=== PATIENT | female | born 1995 | race Caucasian/White ===

== ENCOUNTER 2018-12-14 14:55 | Emergency (ER) | payer OTHER ==
[2018-12-14 15:22] LABS: Urine Blood 3+ (NEG); Urine Glucose NEGATIVE (NEG); Urine Protein 3+ (NEG)
[2018-12-14 15:46] LABS: Urine Bacteria 20-50 /HPF (<20); Urine Culture Reflex Order REFLEXED; Urine RBC >50 /HPF (NONE SEEN)
--- NOTE | 2018-12-14 15:46 | ER ---
Nurse's Notes [facility] Name: Merlyn Guallpa Age: 23 yrs Sex: Female : 1995 Arrival Date: 12/14/2018 Time: 14:58 Bed 30 Private MD: Diagnosis: Urinary tract infection, site not specified Presentation: 12/14 15:15 Presenting complaint: Patient states: "I WAS FINE EARLIER TODAY. I WAS AT WORK AND rv SUDDENLY I JUST FELT GOING TO THE BATHROOM EVERY FIVE MINUTES, AND I ALSO NOTICED BLOOD IN MY URINE.". Transition of care: patient was not received from another setting of care. Onset of symptoms was December 14, 2018 at 12:00. Risk Assessment: Do you want to hurt yourself or someone else? Patient reports no desire to harm self or others. Initial Sepsis Screen: Does the patient meet any 2 criteria? No. Patient's initial sepsis screen is negative. Does the patient have a suspected source of infection? No. Patient's initial sepsis screen is negative. Care prior to arrival: None. 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 - Social history:: Smoking status: Patient/guardian denies using tobacco, never smoked. - Ebola Screening: : Patient negative for fever greater than or equal to 101.5 degrees Fahrenheit, and additional compatible Ebola Virus Disease symptoms Patient denies exposure to infectious person Patient denies travel to an Ebola-affected area in the 21 days before illness onset. - Family history:: not pertinent. - Hospitalizations: : No recent hospitalization is reported. Screenin:37 Abuse screen: Denies threats or abuse. Denies injuries from another. Nutritional rv screening: No deficits noted. Tuberculosis screening: No symptoms or risk factors identified. Fall Risk None identified. Assessment: 15:37 General: Appears in no apparent distress. comfortable, Behavior is calm, cooperative. rv Pain: Denies pain. Neuro: Level of Consciousness is awake, alert, obeys commands, Oriented to person, place, time, situation. Cardiovascular: Capillary refill < 3 seconds. Respiratory: Airway is patent. GI: No signs and/or symptoms were reported involving the gastrointestinal system. : No signs and/or symptoms were reported regarding the genitourinary system. EENT: No signs and/or symptoms were reported regarding the EENT system. Derm: Skin is intact. Musculoskeletal: No signs and/or symptoms reported regarding the musculoskeletal system. Vital Signs: 15:21 BP 116 / 73; Pulse 88; Resp 18; Temp 98.7(O); Pulse Ox 97% on R/A; Weight 113.4 kg (R); rv ED Course: 14:58 Patient arrived in ED. as 15:17 Triage completed. rv 15:22 Alvin Danielle MD is Attending Physician. rn 15:23 Urine Microscopic Only Sent. rv 15:38 Patient has correct armband on for positive identification. Bed in low position. Call rv light in reach. Side rails up X 1. Adult w/ patient. Pulse ox on. NIBP on. 15:38 Patient placed in an exam room, on a stretcher, on pulse oximetry, Patient notified of rv wait time. 15:52 No provider procedures requiring assistance completed. Patient did not have IV access rv during this emergency room visit. Administered Medications: No medications were administered Outcome: 15:45 Discharge ordered by . rn 15:52 Discharged to home ambulatory. rv 15:52 Condition: good 15:52 Discharge instructions given to patient, family, Instructed on discharge instructions, follow up and referral plans. medication usage, Demonstrated understanding of instructions, follow-up care, medications, Prescriptions given X 1. 15:53 Patient left the ED. rv Signatures: Ally Mariee Roman, MD MD rn Vicente, Ronaldo, RN RN rv
--- NOTE | 2018-12-14 15:46 | EDPHYS ---
Physician Documentation [facility] Name: Merlyn Guallpa Age: 23 yrs Sex: Female : 1995 Arrival Date: 12/14/2018 Time: 14:58 Bed 30 Private MD: ED Physician Alvin Danielle HPI: 12/14 15:38 This 23 yrs old Female presents to ER via Ambulatory with complaints of rn Urinary Problem. 15:38 The patient presents with urinary symptoms, dysuria, frequency. Onset: The rn symptoms/episode began/occurred today. Modifying factors: The symptoms are alleviated by nothing, the symptoms are aggravated by nothing. Severity of symptoms: At their worst the symptoms were mild, in the emergency department the symptoms are unchanged. The patient has not experienced similar symptoms in the past. The patient has not recently seen a physician. Reports today began with increased urinary frequency and some blood in urine. No fever/vomiting/abd pain. . 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 - Social history:: Smoking status: Patient/guardian denies using tobacco, never smoked. - Ebola Screening: : Patient negative for fever greater than or equal to 101.5 degrees Fahrenheit, and additional compatible Ebola Virus Disease symptoms Patient denies exposure to infectious person Patient denies travel to an Ebola-affected area in the 21 days before illness onset. - Family history:: not pertinent. - Hospitalizations: : No recent hospitalization is reported. ROS: 15:38 Constitutional: Negative for fever, chills, and weight loss, Eyes: Negative for injury, rn pain, redness, and discharge, Cardiovascular: Negative for chest pain, palpitations, and edema, Respiratory: Negative for shortness of breath, cough, wheezing, and pleuritic chest pain, Abdomen/GI: Negative for abdominal pain, nausea, vomiting, diarrhea, and constipation, Back: Negative for injury and pain, : + hematuria and dysuria MS/Extremity: Negative for injury and deformity, Skin: Negative for injury, rash, and discoloration, Neuro: Negative for headache, weakness, numbness, tingling, and seizure. Exam: 15:38 Constitutional: This is a well developed, well nourished patient who is awake, alert, rn and in no acute distress. Abdomen/GI: Soft, non-tender Vital Signs: 15:21 BP 116 / 73; Pulse 88; Resp 18; Temp 98.7(O); Pulse Ox 97% on R/A; Weight 113.4 kg (R); rv MDM: 15:22 Patient medically screened. rn 15:38 Differential diagnosis: urinary tract infection. Data reviewed: vital signs, nurses rn notes, lab test result(s), urinalysis, and as a result, I will discharge patient. Counseling: I had a detailed discussion with the patient and/or guardian regarding: the historical points, exam findings, and any diagnostic results supporting the discharge/admit diagnosis, lab results, the need for outpatient follow up, to return to the emergency department if symptoms worsen or persist or if there are any questions or concerns that arise at home. Special discussion: I discussed with the patient/guardian in detail that at this point there is no indication for admission to the hospital. It is understood, however, that if the symptoms persist or worsen the patient needs to return immediately for re-evaluation. 12/14 15:14 Order name: Urine Dipstick--Ancillary (enter results) 12/14 15:14 Order name: Urine --Ancillary (enter results) 12/14 15:14 Order name: Urine Microscopic Only 12/14 15:46 Order name: Urine Culture EDMS Administered Medications: No medications were administered Disposition: 12/14/18 15:45 Discharged to Home. Impression: Urinary tract infection, site not specified. - Condition is Stable. - Discharge Instructions: Urinary Tract Infection, Adult. - Prescriptions for Macrobid 100 mg Oral Capsule - take 1 capsule by ORAL route every 12 hours for 10 days; 20 capsule. - Medication Reconciliation Form, Thank You Letter, Antibiotic Education, Prescription Opioid Use, Work release form form. - Follow up: Private Physician; When: As needed; Reason: Recheck today's complaints, Re-evaluation by your physician. - Problem is new. - Symptoms have improved. Signatures: Dispatcher [employer] EDMS Danielle, Alvin, MD MD rn Donavan, Ruben, RN RN rv Corrections: (The following items were deleted from the chart) 15:53 15:45 12/14/2018 15:45 Discharged to Home. Impression: Urinary tract infection, site rv not specified. Condition is Stable. Forms are Medication Reconciliation Form, Thank You Letter, Antibiotic Education, Prescription Opioid Use. Follow up: Private Physician; When: As needed; Reason: Recheck today's complaints, Re-evaluation by your physician. Problem is new. Symptoms have improved. rn
== END 2018-12-14 15:53 | disposition home or self-care (01) ==
LOC: ER 14:55
DX: N39.0 Urinary tract infection, site not specified (principal)
CPT/HCPCS: 81003; 81015; 81025; 87086; 87088; 99283

== ENCOUNTER 2019-02-02 13:50 | Emergency (ER) | payer OTHER ==
--- NOTE | 2019-02-02 15:46 | EDPHYS ---
Physician Documentation [facility] Name: Merlyn Guallpa Age: 23 yrs Sex: Female : 1995 Arrival Date: 02/02/2019 Time: 13:51 Bed 28 Private MD: ED Physician Alvin Danielle HPI: 02/02 15:44 This 23 yrs old Female presents to ER via Unassigned with complaints of snw Cough, Headache, Sore Throat. 15:44 The patient or guardian reports flu symptoms, low-grade fever, no appetite, hoarse snw voice. Onset: The symptoms/episode began/occurred suddenly, 3 day(s) ago, and became persistent. Severity of symptoms: At their worst the symptoms were moderate, in the emergency department the symptoms have improved. Associated signs and symptoms: The patient has no apparent associated signs or symptoms. It is unknown whether or not the patient has had similar symptoms in the past. It is unknown whether or not the patient has recently seen a physician. last year pt had pneumonia with pleurisy s/s since. 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 - Social history:: Smoking status: Patient/guardian denies using tobacco. - Ebola Screening: : Patient negative for fever greater than or equal to 101.5 degrees Fahrenheit, and additional compatible Ebola Virus Disease symptoms Patient denies exposure to infectious person Patient denies travel to an Ebola-affected area in the 21 days before illness onset No symptoms or risks identified at this time. ROS: 15:43 Constitutional: Negative for fever, chills, and weight loss, Eyes: Negative for injury, snw pain, redness, and discharge, Neck: Negative for injury, pain, and swelling, Cardiovascular: Negative for chest pain, palpitations, and edema, Respiratory: Negative for shortness of breath, cough, wheezing, and pleuritic chest pain, Abdomen/GI: Negative for abdominal pain, nausea, vomiting, diarrhea, and constipation, Back: Negative for injury and pain, : Negative for injury, bleeding, discharge, and swelling, MS/Extremity: Negative for injury and deformity, Skin: Negative for injury, rash, and discoloration, Neuro: Negative for headache, weakness, numbness, tingling, and seizure, Psych: Negative for depression, anxiety, suicide ideation, homicidal ideation, and hallucinations. 15:43 ENT: Positive for hoarseness, sore throat. Exam: 15:41 Constitutional: This is a well developed, well nourished patient who is awake, alert, snw and in no acute distress. Head/Face: Normocephalic, atraumatic. Eyes: Pupils equal round and reactive to light, extra-ocular motions intact. Lids and lashes normal. Conjunctiva and sclera are non-icteric and not injected. Cornea within normal limits. Periorbital areas with no swelling, redness, or edema. Neck: Trachea midline, no thyromegaly or masses palpated, and no cervical lymphadenopathy. Supple, full range of motion without nuchal rigidity, or vertebral point tenderness. No Meningismus. Chest/axilla: Normal chest wall appearance and motion. Nontender with no deformity. No lesions are appreciated. Cardiovascular: Regular rate and rhythm with a normal S1 and S2. No gallops, murmurs, or rubs. Normal PMI, no JVD. No pulse deficits. Respiratory: Lungs have equal breath sounds bilaterally, clear to auscultation and percussion. No rales, rhonchi or wheezes noted. No increased work of breathing, no retractions or nasal flaring. Abdomen/GI: Soft, non-tender, with normal bowel sounds. No distension or tympany. No guarding or rebound. No evidence of tenderness throughout. Back: No spinal tenderness. No costovertebral tenderness. Full range of motion. Skin: Warm, dry with normal turgor. Normal color with no rashes, no lesions, and no evidence of cellulitis. MS/ Extremity: Pulses equal, no cyanosis. Neurovascular intact. Full, normal range of motion. Neuro: Awake and alert, GCS 15, oriented to person, place, time, and situation. Cranial nerves II-XII grossly intact. Motor strength 5/5 in all extremities. Sensory grossly intact. Cerebellar exam normal. Normal gait. Psych: Awake, alert, with orientation to person, place and time. Behavior, mood, and affect are within normal limits. 15:41 ENT: External ear(s): are unremarkable, Ear canal(s): are normal, TM's: are normal, Nose: is normal, Mouth: is normal, Oral mucosa: moist, Posterior pharynx: swelling, that is mild, erythema, that is moderate, Voice: is normal. Vital Signs: 14:02 BP 126 / 84; Pulse 68; Resp 17; Temp 98.6; Pulse Ox 100% on R/A; Weight 65.32 kg; Pain sg 6/10; 15:10 BP 112 / 78; Pulse 79; Pulse Ox 99% on R/A; Pain 0/10; jp3 15:55 BP 101 / 85; Pulse 74; Resp 14; Temp 97.8; Pulse Ox 98% on R/A; la1 MDM: 15:13 Patient medically screened. snw 15:46 Data reviewed: vital signs, nurses notes. Data interpreted: Pulse oximetry: on room air snw is 99 %. Interpretation: normal. Counseling: I had a detailed discussion with the patient and/or guardian regarding: the historical points, exam findings, and any diagnostic results supporting the discharge/admit diagnosis, lab results, the need for outpatient follow up, to return to the emergency department if symptoms worsen or persist or if there are any questions or concerns that arise at home. Special discussion: Based on the history and exam findings, there is no indication for further emergent testing or inpatient evaluation. I discussed with the patient/guardian the need to see the primary care provider for further evaluation of the symptoms. 02/02 14:06 Order name: Strep; Complete Time: 15:05 sg 02/02 14:48 Order name: Throat Culture EDMS Administered Medications: 15:55 Drug: predniSONE 40 mg Route: PO; la1 15:55 Drug: Pepcid 20 mg Route: PO; la1 Disposition: 18:12 Co-signature as Attending Physician, Alvin Danielle MD. rn Disposition: 02/02/19 15:45 Discharged to Home. Impression: Acute laryngitis. - Condition is Stable. - Discharge Instructions: Laryngitis, Upper Respiratory Infection, Adult. - Prescriptions for Prednisone 20 mg Oral Tablet - take 2 tablet by ORAL route once daily for 5 days; 10 tablet. Pepcid 20 mg Oral Tablet - take 1 tablet by ORAL route once daily for 10 days; 10 tablet. - Work release form, Medication Reconciliation Form, Thank You Letter, Antibiotic Education, Prescription Opioid Use form. - Follow up: Private Physician; When: 2 - 3 days; Reason: Recheck today's complaints, Continuance of care, Re-evaluation by your physician. Follow up: Emergency Department; When: As needed; Reason: Worsening of condition. Signatures: Dispatcher [employer] EDMS Douglas Cuellar RN RN Cecilia Reyes, COLLAR STARCHER-C COLLAR STARCHER-Csnw Alvin Danielle MD MD rn AttemaMarco RN RN la1 Corrections: (The following items were deleted from the chart) 16:00 15:45 02/02/2019 15:45 Discharged to Home. Impression: Acute laryngitis. Condition is la1 Stable. Forms are Medication Reconciliation Form, Thank You Letter, Antibiotic Education, Prescription Opioid Use. Follow up: Private Physician; When: 2 - 3 days; Reason: Recheck today's complaints, Continuance of care, Re-evaluation by your physician. Follow up: Emergency Department; When: As needed; Reason: Worsening of condition. snw
--- NOTE | 2019-02-02 15:46 | ER ---
Nurse's Notes [facility] Name: Merlyn Guallpa Age: 23 yrs Sex: Female : 1995 Arrival Date: 02/02/2019 Time: 13:51 Bed 28 Private MD: Diagnosis: Acute laryngitis Presentation: 02/02 14:02 Acuity: COLLEEN 4 sg 15:59 Presenting complaint:. Transition of care: patient was not received from another la1 setting of care. Onset of symptoms was February 02, 2019. Risk Assessment: Do you want to hurt yourself or someone else?. Initial Sepsis Screen: Does the patient meet any 2 criteria? No. Patient's initial sepsis screen is negative. Does the patient have a suspected source of infection? No. Patient's initial sepsis screen is negative. Care prior to arrival: None. 15:59 Method Of Arrival: Ambulatory la1 16:00 Presenting complaint: Patient states: sore throat since sunday. la1 Triage Assessment: 15:58 Pain: Also complains of. 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 - Social history:: Smoking status: Patient/guardian denies using tobacco. - Ebola Screening: : Patient negative for fever greater than or equal to 101.5 degrees Fahrenheit, and additional compatible Ebola Virus Disease symptoms Patient denies exposure to infectious person Patient denies travel to an Ebola-affected area in the 21 days before illness onset No symptoms or risks identified at this time. Screenin:58 Abuse screen: Denies threats or abuse. Nutritional screening: No deficits noted. On. la1 Tuberculosis screening: No symptoms or risk factors identified. Fall Risk None identified. Assessment: 15:56 General: Appears in no apparent distress. Behavior is calm, cooperative. Pain: la1 Complains of pain in sore throat. Neuro: Level of Consciousness is awake, alert, obeys commands, Oriented to person, place, time, situation. Cardiovascular: Capillary refill < 3 seconds Patient's skin is warm and dry. Respiratory: Airway is patent Respiratory effort is even, unlabored, Breath sounds are clear bilaterally. GI: No signs and/or symptoms were reported involving the gastrointestinal system. : No signs and/or symptoms were reported regarding the genitourinary system. EENT: Reports pain when swallowing. Vital Signs: 14:02 BP 126 / 84; Pulse 68; Resp 17; Temp 98.6; Pulse Ox 100% on R/A; Weight 65.32 kg; Pain sg 6/10; 15:10 BP 112 / 78; Pulse 79; Pulse Ox 99% on R/A; Pain 0/10; jp3 15:55 BP 101 / 85; Pulse 74; Resp 14; Temp 97.8; Pulse Ox 98% on R/A; la1 ED Course: 13:51 Patient arrived in ED. as 14:02 Triage completed. sg 14:03 Arm band placed on. sg 15:05 Cecilia Bradford FNP-C [facility]. snw 15:05 Alvin Danielle MD is Attending Physician. snw 15:32 Marco Graf, FAVIOLA is Primary Nurse. la1 15:58 Call light in reach. Side rails up X 1. la1 15:58 No provider procedures requiring assistance completed. Patient did not have IV access la1 during this emergency room visit. Administered Medications: 15:55 Drug: predniSONE 40 mg Route: PO; la1 15:55 Drug: Pepcid 20 mg Route: PO; la1 Outcome: 15:45 Discharge ordered by . snw 16:00 Discharged to home ambulatory. la1 16:00 Condition: stable 16:00 Discharge instructions given to patient, Instructed on discharge instructions, follow up and referral plans. medication usage, Demonstrated understanding of instructions, follow-up care, medications, Prescriptions given X 2. 16:00 Patient left the ED. la1 Signatures: Douglas Cuellar RN RN Cecilia Bradford FNP-C FNP-Ally Mejia Lee, RN RN la1 Jac Kim jp3
[2019-02-02] MEDS ORDERED: predniSONE 20 MG TAB ONE (16:02)
[2019-02-02] MEDS ORDERED: FAMOTIDINE 20 MG TAB ONE (16:02)
== END 2019-02-02 16:00 | disposition home or self-care (01) ==
LOC: ER 13:50
DX: J04.0 Acute laryngitis (principal)
CPT/HCPCS: 87070; 87081; 99283; J7512

== ENCOUNTER 2021-08-07 20:49 | Emergency (ER) | payer OTHER, SELFPAY ==
--- NOTE | 2021-08-07 21:59 | RAD REPORT ---
EXAM DESCRIPTION: Guy Single View08/07/2021 9:45 pm CLINICAL HISTORY: Cough COMPARISON: none FINDINGS: The lungs appear clear of acute infiltrate. The heart is normal size IMPRESSION: No acute abnormalities displayed
--- NOTE | 2021-08-07 22:30 | ER ---
Nurse's Notes [facility] Name: Merlyn Guallpa Age: 25 yrs Sex: Female : 1995 Arrival Date: 08/07/2021 Time: 20:54 Bed 11 Private MD: Diagnosis: Acute upper respiratory infection, unspecified Presentation: 08/07 21:02 Acuity: COLLEEN 4 lp1 21:02 Chief complaint: Patient states: Sore throat, fever, nasal congestion, cough since lp1 08/04/21. 21:02 Coronavirus screen: congestion, cough unrelated to allergies, fever, runny nose. Ebola lp1 Screen: No symptoms or risks identified at this time. Initial Sepsis Screen: Does the patient meet any 2 criteria? No. Patient's initial sepsis screen is negative. Does the patient have a suspected source of infection? No. Patient's initial sepsis screen is negative. Risk Assessment: Do you want to hurt yourself or someone else? Patient reports no desire to harm self or others. Onset of symptoms was August 07, 2021. 21:02 Method Of Arrival: Ambulatory lp1 Triage Assessment: 21:15 General: Behavior is calm, cooperative. 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 - Social history:: Smoking status: Patient denies any tobacco usage or history of. Screenin:18 Abuse screen: Denies threats or abuse. Denies injuries from another. Nutritional lp1 screening: No deficits noted. Tuberculosis screening: No symptoms or risk factors identified. Fall Risk None identified. Assessment: 21:15 General: Appears in no apparent distress. Pain: Complains of pain in sore throat. dc2 Neuro: No deficits noted. 22:15 Respiratory: No deficits noted. dc2 Vital Signs: 21:02 BP 136 / 71; Pulse 106; Resp 18; Temp 97.3; Pulse Ox 99% on R/A; Weight 127.01 kg (R); lp1 Height 5 ft. 6 in. (167.64 cm); 22:15 BP 104 / 54; Pulse 74; Resp 17; Temp 98.4; Pulse Ox 96% on R/A; dc2 21:02 Body Mass Index 45.19 (127.01 kg, 167.64 cm) lp1 ED Course: 20:54 Patient arrived in ED. bp1 20:54 [facility]C [facility] kb 20:54 Black Andre MD is Attending Physician. kb 21:02 Triage completed. lp1 21:14 Arm band placed on. lp1 21:45 Chest Single View XRAY In Process Unspecified. EDMS 22:38 Patient has correct armband on for positive identification. lp1 22:39 No provider procedures requiring assistance completed. Patient did not have IV access lp1 during this emergency room visit. Administered Medications: No medications were administered Outcome: 22:29 Discharge ordered by . kb 22:38 Discharged to home ambulatory. dc2 22:38 Condition: stable 22:38 Discharge instructions given to patient, Instructed on discharge instructions. 22:40 Patient left the ED. dc2 Signatures: Dispatcher [employer] EDMT Ashley Galindo FNP-C FNP-Ckb Pena, Laura RN RN lp1 Karen Díaz [facility] Kavita Cheng RN RN dc2 Corrections: (The following items were deleted from the chart) 23:02 23:01 Patient left the ED. dc2 dc2
--- NOTE | 2021-08-07 22:30 | EDPHYS ---
Physician Documentation [facility] Name: Merlyn Guallpa Age: 25 yrs Sex: Female : 1995 Arrival Date: 08/07/2021 Time: 20:54 Bed 11 Private MD: ED Physician Black Andre HPI: 08/07 22:27 This 25 yrs old Female presents to ER via Ambulatory with complaints of Sinus kb Congestion, Nasal Congestion. 22:27 The patient or guardian reports cough, congestion. Onset: The symptoms/episode kb began/occurred 4 day(s) ago. Severity of symptoms: At their worst the symptoms were mild, moderate, in the emergency department the symptoms are unchanged. Modifying factors: The symptoms are alleviated by nothing, the symptoms are aggravated by nothing. Associated signs and symptoms: Pertinent positives: fever, rhinorrhea, sore throat. The patient has not experienced similar symptoms in the past. The patient has not recently seen a physician. "I don't know if I have covid or pneumonia, but I have congestion in my nose and chest.". 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 - Social history:: Smoking status: Patient denies any tobacco usage or history of. ROS: 22:28 Abdomen/GI: Negative for abdominal pain, nausea, vomiting, diarrhea, and constipation. kb 22:28 Constitutional: Positive for fever. 22:28 ENT: Positive for sinus congestion, sore throat. 22:28 Respiratory: Positive for cough. 22:28 All other systems are negative. Exam: 22:28 Constitutional: This is a well developed, well nourished patient who is awake, alert, kb and in no acute distress. Head/Face: Normocephalic, atraumatic. ENT: Moist Mucous membranes Cardiovascular: Regular rate and rhythm with a normal S1 and S2. No gallops, murmurs, or rubs. No pulse deficits. Respiratory: Respirations even and unlabored. No increased work of breathing, no retractions or nasal flaring. Skin: Warm, dry with normal turgor. Normal color. MS/ Extremity: Pulses equal, no cyanosis. Neurovascular intact. Full, normal range of motion. Neuro: Awake and alert, GCS 15, oriented to person, place, time, and situation. Moves all extremities. Normal gait. Psych: Awake, alert, with orientation to person, place and time. Behavior, mood, and affect are within normal limits. Vital Signs: 21:02 BP 136 / 71; Pulse 106; Resp 18; Temp 97.3; Pulse Ox 99% on R/A; Weight 127.01 kg (R); lp1 Height 5 ft. 6 in. (167.64 cm); 22:15 BP 104 / 54; Pulse 74; Resp 17; Temp 98.4; Pulse Ox 96% on R/A; dc2 21:02 Body Mass Index 45.19 (127.01 kg, 167.64 cm) lp1 MDM: 20:55 Patient medically screened. kb 22:27 Data reviewed: vital signs, nurses notes. Data interpreted: Pulse oximetry: on room air kb is 99 %. Interpretation: normal. Counseling: I had a detailed discussion with the patient and/or guardian regarding: the historical points, exam findings, and any diagnostic results supporting the discharge/admit diagnosis, lab results, radiology results, the need for outpatient follow up, a family practitioner, to return to the emergency department if symptoms worsen or persist or if there are any questions or concerns that arise at home. 08/07 20:59 Order name: Flu; Complete Time: 22:00 kb 08/07 20:59 Order name: Chest Single View XRAY; Complete Time: 22:01 kb 08/07 22:25 Order name: SARS-COV-2 RT PCR; Complete Time: 22:27 EDMS Administered Medications: No medications were administered Disposition: 08/08 05:51 Co-signature as Attending Physician, Black Andre MD. [email or web address] Disposition Summary: 08/07/21 22:29 Discharge Ordered Location: Home kb Condition: Stable kb Diagnosis - Acute upper respiratory infection, unspecified kb Followup: kb - With: Emergency Department - When: As needed - Reason: Worsening of condition Followup: kb - With: Private Physician - When: 2 - 3 days - Reason: Recheck today's complaints, Continuance of care, Re-evaluation by your physician Discharge Instructions: - Discharge Summary Sheet kb - Upper Respiratory Infection, Adult, Xwli-zz-Urbl kb - Viral Respiratory Infection, Purd-Qp-Aldi kb Forms: - Medication Reconciliation Form kb - Thank You Letter kb - Antibiotic Education kb - Prescription Opioid Use kb Signatures: Dispatcher [employer] EDAshley Delgado, Rhonda Giordano RN RN lp1 Black Andre MD MD [email or web address] Corrections: (The following items were deleted from the chart) 08/07 21:19 21:00 CORONAVIRUS+MR.LAB.BRZ ordered. EDNE EDMS
[2021-08-07 23:18] VITALS: BP 104/54; TEMP 98.4; O2SAT 96
== END 2021-08-07 23:01 | disposition home or self-care (01) ==
LOC: ER 20:49
DX: J06.9 Acute upper respiratory infection, unspecified (principal); Z20.822 Contact with and (suspected) exposure to COVID-19
CPT/HCPCS: 71045; 87804; 99283; U0003

== ENCOUNTER 2023-07-07 20:47 | Emergency (ER) | payer SELFPAY ==
--- OUTSIDE RECORDS SUMMARY | 2023-07-07 20:50 | XMS REPORT | Continuity of Care Document ---
:[address] [facility] t Address [address] [facility] [address] [place] [id number] Care Team Providers Name Role Phone ELISABET SIMPSON Attending Clinician Unavailable Problems This patient has no known problems. Allergies, Adverse Reactions, Alerts Allergy Allergy Status Severity Reaction(s) Onset Inactive Treating Comm ents Source Name Type Date Date Clinician NO KNOWN Drug Active [facility] Medications This patient has no known medications. Procedures This patient has no known procedures. Encounters Start End Encounter Admission Attending Care Care Encounter Source Date/Time Date/Time Type Type Clinicians Facility Department ID 2023-04-12 2023-04-12 Outpatient [facility] [id number] [place] 11:34:15 11:34:15 [id number] F [place] 2023-03-02 2023-03-02 Outpatient [facility] [id number] [place] 09:39:10 09:39:10 [id number] F [place] 2023-02-09 2023-02-09 Outpatient [facility] [id number] [place] 10:35:30 10:35:30 [id number] F [place] 2022-10-27 2022-10-27 Outpatient [facility] [id number] [place] 11:38:25 11:38:25 [id number] F [place] 2020-02-07 2020-02-07 Out[facility] [id number] [facility] 12:20:00 12:20:00 ELISABET kinjal [facility] Results Test Description Test Time Test Comments Results Result Comments Source FSH + LH PROFILE 2023-02-10 05:27:48 Test Item Value Reference Range Interpretation Comme nts FOLLICLE STIM HORMONE (test 5.6 IU/L SEE BELOW EXPECTED VALUES FOR [facility]SH code = 2700) FOR FEMALES >17 YEARS FOLLICULAR 3.5- 12.5 IU/L MID-CYCLE PEAK 4.7-21.5 IU/L LUTEAL PHASE 1. 7-7.7 IU/L POSTMENOPAUSAL 25.8-134.8 IU/L LUTEINIZING HORMONE (test code 6.7 IU/L SEE BELOW EXPECTED VALUES FOR LH = 2776) FOR FEMALES >17 YEARS MALES FEMALES > =18 YEARS 1.8-8.6 IU/L FOLLICULAR 2.4-12.6 IU/L MID-CYCLE PEAK 14.0-95.6 IU/L LUTEAL PHASE 1. 0-11.4 IU/L POSTMENOPAUSAL 7.7-58.5 IU/L TSH, THIRD [id number] 05:27:48 Test Item Value Reference Range Interpretation Comments TSH, THIRD GENERATION (test code 2.480 UIU/ML 0.400-4.100 = 2821) [id number] 05:27:48 Test Item Value Reference Range Interpretation Comments PROLACTIN (test 8.2 NG/ML 5.0-37.0 NOTE: Metho dology is [facility] code = 2800) Dante Electroch emiluminescence Immunoassay (EC KRYS). Values obtained with d ifferent assays/manufact urers cannot be used interchang eably. Results should not be u sed as sole basis to establ yuliana the presence or abs ence of malignancy. [facility] has important patho logy staff changes effecti ve 01/17/2023. New [facility]ol [facility] staff will provide uninter rupted, excellent patie nt care and clinical consul tation. See URL: [email or web address] UNLESS OTHERW ISE INDICATED, ALL TESTING PER FORMED AT [facility], [facility]. [address] [place] [address]642 PATIENT ASSESSMENT COORDINATOR: ILIR PAIGE M.D. DANN Tinsley [id number] [place]. [id number] CBC W/AUTO DIFF WITH [id number] 03:58:36 Test Item Value Reference Range Interpretation Comments WBC (test code = 9.9 K/UL 3.5-11.0 1001) RBC (test code = 4.58 M/UL 3.80-5.40 1002) HEMOGLOBIN (test code 12.3 G/DL 11.5-15.5 = 1003) HEMATOCRIT (test code 37.1 % 34.0-45.0 = 1004) MCV (test code = 81.0 fL 80.0-99.0 1005) MCH (test code = 26.9 PG 25.0-33.0 1006) MCHC (test code = 33.2 G/DL 31.0-36.0 1007) RDW (test code = 13.2 % 11.5-15.0 1038) NEUTROPHILS (test 69.3 % code = 1008) LYMPHOCYTES (test 22.9 % code = 1010) MONOCYTES (test code 5.3 % = 1011) EOSINOPHILS (test 1.9 % code = 1012) BASOPHILS (test code 0.3 % = 1013) IMMATURE GRANULOCYTES 0.3 % (test code = 1036) NUCLEATED RBCS (test 0.0 /100 WBC'S See_Comment [Aut omated code = 1065) message] The sy stem which generated this result transmitted reference range : 0.0. The refere nce range was not u sed to interpret th is result as normal/abnormal . PLATELET COUNT (test 382 K/UL 130-400 code = 1015) ABSOLUTE NEUTROPHILS 6.86 K/UL 1.50-7.50 (test code = 1066) ABSOLUTE LYMPHOCYTES 2.27 K/UL 1.00-4.00 (test code = 1067) ABSOLUTE MONOCYTES 0.52 K/UL 0.20-1.00 (test code = 1068) ABSOLUTE EOSINOPHILS 0.19 K/UL 0.00-0.50 (test code = 1040) ABSOLUTE BASOPHILS 0.03 K/UL 0.00-0.20 (test code = 1069) ABS IMMATURE 0.03 K/UL 0.00-0.10 GRANULOCYTES (test code = 1020) ABS NUCLEATED RBCS 0.00 K/UL 0.00-0.11 (test code = 45789)
[2023-07-07 22:19] LABS: Specific Gravity 1.019 (1.005-1.030); Urine Bilirubin NEGATIVE (Negative); Urine Blood Negative (Negative); Urine Clarity Clear (Clear); Urine Color Light-Yellow (Yellow); Urine Glucose NEGATIVE (Negative); Urine Protein NEGATIVE (Negative); Urine Urobilinogen Normal (Normal)
[2023-07-07 22:21] LABS: Specific Gravity 1.019 (1.005-1.030)
[2023-07-07] MEDS ORDERED: KETOROLAC 30 MG/ML INJ ONE (23:02)
[2023-07-07 23:28] LABS: Absolute Lymphocytes (CBC) 3.2 K/uL (0.7-4.9); Hematocrit 37.1 % (36.0-45.0); Lymphocytes % 24.6 % (15.3-44.8); MCV 79.2 fL (80-100); MPV 8.6 fL (7.6-11.3); Platelets 314 thou/uL (152-406); RBC Red Blood Cell Count 4.69 M/uL (3.86-4.86)
[2023-07-07 23:46] LABS: Bilirubin Total 0.3 mg/dL (0.2-1.0); Potassium 3.9 mEq/L (3.5-5.1); Protein, Total 7.5 g/dL (6.4-8.2)
--- NOTE | 2023-07-08 02:22 | EDPHYS ---
Physician Documentation [facility] Name: Merlyn Guallpa Age: 27 yrs Sex: Female : 1995 Arrival Date: 07/07/2023 Time: 20:47 Bed 5 Private MD: ED Physician Jeni Mccann HPI: 07/07 22:00 This 27 yrs old Female presents to ER via Ambulatory with complaints of Possible Kidney cp Stone, Shortness Of Breath, Low Back Pain. 22:00 The patient presents with pain that is acute, with no known mechanism of injury. The cp symptoms are located in the mid back area. Onset: The symptoms/episode began/occurred this morning. Associated signs and symptoms: Pertinent positives: abdominal pain, Pertinent negatives: chest pain, dysuria, fever, hematuria, incontinence, numbness, weakness. The problem was sustained from unknown cause. Modifying factors: the patient symptoms are aggravated by deep breath, movement. Historical: - Allergies: 21:44 No Known Allergies; pf1 - PMHx: 21:44 PCOS; pf1 - PSHx: 21:44 None; pf1 - Immunization history:: Adult Immunizations up to date, Client reports having NOT received the Covid vaccine. Last tetanus immunization: < 10 years ago Flu vaccine is not up to date. - Social history:: Smoking status: Patient denies any tobacco usage or history of. Patient uses alcohol, but reports only rare drinking. street drugs, marijuana. ROS: 22:05 Constitutional: Negative for body aches, chills, fever, poor PO intake. cp 22:05 Eyes: Negative for injury, pain, redness, and discharge. cp 22:05 ENT: Negative for ear pain, sore throat, difficulty swallowing, difficulty handling secretions. 22:05 Cardiovascular: Negative for chest pain, edema, palpitations. 22:05 Respiratory: Positive for shortness of breath, Negative for cough, wheezing. 22:05 Abdomen/GI: Positive for abdominal pain, Negative for vomiting, diarrhea, constipation, anorexia. 22:05 Back: Positive for pain at rest, pain with movement, Negative for injury or acute deformity, decreased range of motion. 22:05 Neuro: Negative for altered mental status, dizziness, headache, numbness, weakness. 22:05 All other systems are negative. Exam: 22:10 Constitutional: The patient appears in no acute distress, alert, awake, non-toxic, well cp developed, well nourished, obese. 22:10 Head/Face: Normocephalic, atraumatic. cp 22:10 Eyes: Periorbital structures: appear normal, Conjunctiva: normal, no exudate, no injection, Sclera: no appreciated abnormality, Lids and lashes: appear normal, bilaterally. 22:10 ENT: External ear(s): are unremarkable, Nose: is normal, Mouth: Lips: moist, Oral mucosa: pink and intact, moist, Posterior pharynx: is normal, airway is patent, no erythema, no exudate. 22:10 Neck: ROM/movement: is normal, is supple, without pain, no range of motions limitations. 22:10 Chest/axilla: Inspection: normal, Palpation: crepitus, is not appreciated, tenderness, is not appreciated. 22:10 Cardiovascular: Rate: normal, Rhythm: regular, Edema: is not appreciated, JVD: is not appreciated. 22:10 Respiratory: the patient does not display signs of respiratory distress, Respirations: normal, no use of accessory muscles, no retractions, labored breathing, is not present, Breath sounds: are clear throughout, no decreased breath sounds, no stridor, no wheezing. 22:10 Abdomen/GI: Inspection: obese Bowel sounds: active, all quadrants, Palpation: soft, in all quadrants, nontender, in all quadrants. 22:10 Back: pain, that is mild, of the mid back area, ROM is normal. 22:10 Skin: cellulitis, is not appreciated, no rash present. 22:10 Neuro: Orientation: to person, place \T\ time. Mentation: is normal, Motor: moves all fours, strength is normal, Sensation: is normal, Gait: is steady, at a normal pace, without difficulty. Vital Signs: 21:35 BP 117 / 81; Pulse 81; Resp 16; Temp 98.4; Pulse Ox 100% ; Pain 7/10; pf1 21:35 Weight 140.61 kg; Height 5 ft. 5 in. ; pf1 23:27 BP 120 / 81; Pulse 77; Resp 17 S; Pulse Ox 99% on R/A; jw7 07/08 00:30 BP 120 / 79; Pulse 81; Resp 19 S; Pulse Ox 98% on R/A; jw7 02:46 BP 124 / 83; Pulse 81; Resp 18 S; Pulse Ox 98% on R/A; jw7 07/07 21:35 Body Mass Index 51.59 (140.61 kg, 165.1 cm) pf1 07/07 21:35 Pain Scale: Adult pf1 MDM: 07/07 21:58 Patient medically screened. cp 22:00 Differential diagnosis: Cholelithiasis Pyelonephritis ruptured disc, Ureterolithiasis cp uti. 07/08 02:21 Data reviewed: vital signs, nurses notes, lab test result(s), radiologic studies, CT cp scan. 02:21 I considered the following discharge prescriptions or medication management in the emergency department Medications were administered in the Emergency Department. See MAR. Counseling: I had a detailed discussion with the patient and/or guardian regarding the historical points, exam findings, and any diagnostic results supporting the discharge/admit diagnosis, lab results, radiology results, to return to the emergency department if symptoms worsen or persist or if there are any questions or concerns that arise at home. Response to treatment: the patient's symptoms have markedly improved after treatment, and as a result, I will discharge patient. 07/07 21:45 Order name: CBC with Diff; Complete Time: 00:42 cp 07/08 00:42 Interpretation: Normal except: WBC 12.90; HGB 11.6; MCV 79.2; MCH 24.8; MCHC 31.4; RDW cp 15.6; NEUT A 8.6. 07/07 21:45 Order name: CMP; Complete Time: 00:42 cp 07/07 21:45 Order name: Lipase; Complete Time: 00:42 cp 07/07 21:45 Order name: Test, Urine; Complete Time: 00:42 cp 07/07 21:45 Order name: Urinalysis w/ reflexes; Complete Time: 00:42 cp 07/08 00:42 Order name: CT Stone Protocol 07/07 21:45 Order name: IV Saline Lock; Complete Time: 23:24 cp 07/07 21:45 Order name: Labs collected and sent; Complete Time: 23:24 cp Administered Medications: 07/07 23:24 Drug: TORadol - Ketorolac IVP 15 mg Route: IVP; Site: right hand; 07/08 02:48 Follow up: Response: No adverse reaction jw7 02:40 Drug: Lidoderm Topical Patch 5 % (700 mg/patch) 1 patches Route: Topical; Site: jw7 affected area; 02:49 Follow up: Response: No adverse reaction jw7 Disposition Summary: 07/08/23 02:22 Discharge Ordered Location: Home cp Problem: new cp Symptoms: have improved cp Condition: Stable cp Diagnosis - Dorsalgia, unspecified cp Followup: cp - With: Private Physician - When: 2 - 3 days - Reason: Recheck today's complaints Discharge Instructions: - Discharge Summary Sheet cp - Acute Back Pain, Adult cp Forms: - Medication Reconciliation Form cp - Thank You Letter cp - Antibiotic Education cp - Prescription Opioid Use cp - Patient Portal Instructions cp - Leadership Thank You Letter cp Prescriptions: - Cyclobenzaprine 10 mg Oral Tablet - take 1 tablet by ORAL route every 8 hours As needed; 20 tablet; Refills: 0, cp Product Selection Permitted - Diclofenac Sodium 75 mg Oral tablet,delayed release (DR/EC) - take 1 tablet by ORAL route 2 times per day; 20 tablet; Refills: 0, Product cp Selection Permitted Signatures: Dispatcher [employer] EDPedrito Peña PA PA cp Ruben Go RN RN Cinthia Bassett RN RN jw7 Bailey Torres RN RN pf1
--- NOTE | 2023-07-08 02:22 | ER ---
Nurse's Notes [facility] Name: Merlyn Guallpa Age: 27 yrs Sex: Female : 1995 Arrival Date: 07/07/2023 Time: 20:47 Bed 5 Private MD: Diagnosis: Dorsalgia, unspecified Presentation: 07/07 21:35 Chief complaint: Patient states: upper abdominal pain,onset this AM with bilateral pf1 flank pain of 7,onset 1130 today. Patient stated pain increases with movement and taking a deep breath with SOB. Patient denies any urinary problems, nausea and vomiting. Coronavirus screen: Vaccine status: Patient reports being unvaccinated. Client denies travel out of the [place] in the last 14 days. At this time, the client does not indicate any symptoms associated with coronavirus-19. Ebola Screen: Patient negative for fever greater than or equal to 101.5 degrees Fahrenheit, and additional compatible Ebola Virus Disease symptoms. Initial Sepsis Screen: Does the patient meet any 2 criteria? No. Patient's initial sepsis screen is negative. Does the patient have a suspected source of infection? No. Patient's initial sepsis screen is negative. Risk Assessment: Do you want to hurt yourself or someone else? Patient reports no desire to harm self or others. 21:35 Method Of Arrival: Ambulatory pf1 21:35 Acuity: COLLEEN 3 pf1 23:23 Onset of symptoms was July 07, 2023. rv Historical: - Allergies: 21:44 No Known Allergies; pf1 - PMHx: 21:44 PCOS; pf1 - PSHx: 21:44 None; pf1 - Immunization history:: Adult Immunizations up to date, Client reports having NOT received the Covid vaccine. Last tetanus immunization: < 10 years ago Flu vaccine is not up to date. - Social history:: Smoking status: Patient denies any tobacco usage or history of. Patient uses alcohol, but reports only rare drinking. street drugs, marijuana. Screenin:[facility] ED Fall Risk Assessment (Adult) History of falling in the last 3 months, rv including since admission No falls in past 3 months (0 pts) Confusion or Disorientation No (0 pts) Intoxicated or Sedated No (0 pts) Impaired Gait No (0 pts) Mobility Assist Device Used No (0 pt) Altered Elimination No (0 pt) Score/Fall Risk Level 0 - 2 = Low Risk Oriented to surroundings, Maintained a safe environment, Educated pt \T\ family on fall prevention, incl call for assistance when getting out of bed, Assessed \T\ reinforced patient's understanding of fall precautions, Provided non-skid footwear, Hourly rounding (assess needs \T\ fall precautionary measures) done, Used ambulatory aids as needed (educated on \T\ assisted with), Used gait belt as appropriate. Abuse screen: Denies threats or abuse. Denies injuries from another. Nutritional screening: No deficits noted. Tuberculosis screening: No symptoms or risk factors identified. Assessment: 23:22 General: Appears uncomfortable, Behavior is calm, cooperative. Pain: Complains of pain rv in low back. Neuro: Level of Consciousness is awake, alert, obeys commands, Oriented to person, place, time, situation. Cardiovascular: Capillary refill < 3 seconds. Respiratory: Airway is patent. GI: Bowel sounds present X 4 quads. Abd is soft and non tender X 4 quads. Derm: Skin is intact. 07/08 00:30 Reassessment: Patient appears in no apparent distress at this time. [facility]. Patient and/or family updated on plan of care and expected duration. Pain level reassessed. Patient is alert, oriented x 3, equal unlabored respirations, skin warm/dry/pink. 02:46 Reassessment: Patient appears in no apparent distress at this time. Patient and/or jw7 family updated on plan of care and expected duration. Pain level reassessed. Patient is alert, oriented x 3, equal unlabored respirations, skin warm/dry/pink. Patient states symptoms have improved. Vital Signs: 07/07 21:35 BP 117 / 81; Pulse 81; Resp 16; Temp 98.4; Pulse Ox 100% ; Pain 7/10; pf1 21:35 Weight 140.61 kg; Height 5 ft. 5 in. ; pf1 23:27 BP 120 / 81; Pulse 77; Resp 17 S; Pulse Ox 99% on R/A; jw7 07/08 00:30 BP 120 / 79; Pulse 81; Resp 19 S; Pulse Ox 98% on R/A; jw7 02:46 BP 124 / 83; Pulse 81; Resp 18 S; Pulse Ox 98% on R/A; jw7 07/07 21:35 Body Mass Index 51.59 (140.61 kg, 165.1 cm) pf1 07/07 21:35 Pain Scale: Adult pf1 ED Course: 07/07 20:48 Patient arrived in ED. jj6 21:01 Pedrito Brice PA is PHCP. cp 21:01 Jeni Mccann MD is Attending Physician. cp 21:44 Triage completed. pf1 22:50 Cinthia Christianson, FAVIOLA is Primary Nurse. jw7 23:21 Inserted saline lock: 22 gauge in right hand, using aseptic technique. Blood collected. rv 23:22 Patient has correct armband on for positive identification. Placed in gown. Bed in low rv position. Client placed on continuous cardiac and pulse oximetry monitoring. NIBP monitoring applied. 23:23 Provided Education on: kidney stones. rv 23:23 Arm band placed on right wrist. rv 07/08 01:11 CT Stone Protocol In Process Unspecified. EDMS 02:47 No provider procedures requiring assistance completed. IV discontinued, intact, jw7 bleeding controlled, No redness/swelling at site. Pressure dressing applied. Administered Medications: 07/07 23:24 Drug: TORadol - Ketorolac IVP 15 mg Route: IVP; Site: right hand; rv 07/08 02:48 Follow up: Response: No adverse reaction jw7 02:40 Drug: Lidoderm Topical Patch 5 % (700 mg/patch) 1 patches Route: Topical; Site: jw7 affected area; 02:49 Follow up: Response: No adverse reaction jw7 Medication: 07/07 23:22 VIS not applicable for this client. rv Outcome: 07/08 02:22 Discharge ordered by . cp 02:47 Discharged to home ambulatory. jw7 02:47 Condition: stable 02:47 Discharge instructions given to patient, Instructed on discharge instructions, follow up and referral plans. medication usage, Demonstrated understanding of instructions, follow-up care, medications, Prescriptions given X 2. 02:48 Patient left the ED. jw7 Signatures: Dispatcher [employer] EDAL Pedrito Brice PA PA cp Vicente, Ronaldo RN RN rv JesusJohanny jj6 Cinthia Christianson RN RN jw7 Bailey Torres RN RN pf1
[2023-07-08] MEDS ORDERED: LIDOCAINE 4% PATCH ONE (02:29)
[2023-07-08 03:03] VITALS: TEMP 98.4
[2023-07-08 03:05] VITALS: O2SAT 98
[2023-07-08 03:07] VITALS: BP 124/83
--- NOTE | 2023-07-09 12:19 | RAD REPORT ---
EXAM DESCRIPTION: CT - Stone Protocol - 07/08/2023 6:37 am CLINICAL HISTORY: 27 years, Female, low back pain COMPARISON: None TECHNIQUE: Multiple transaxial tomograms of the abdomen and pelvis were performed from the lung base s to the symphysis pubis utilizing 3 mm slice thickness at 3 mm interval reconstruction, without admi nistration of IV and oral contrast. Multiplanar reformats in the sagittal and coronal plane were generated and reviewed. This exam was performed according to our departmental dose-optimization protocol, which includes auto mated exposure control, adjustment of the mA and/or kV according to patient size and/or use of iterat ronda reconstruction technique. FINDINGS: The lack of IV and oral contrast limits evaluation of solid organs, subtle lesions cannot be excluded. The lung bases demonstrate to be clear. Grossly the unopacified liver demonstrate decreased attenuation corresponding to fatty infiltration. Otherwise the liver, gallbladder, pancreas, spleen and adrenal glands demonstrate to be within normal limits, no significant focal lesions were identified. The kidneys demonstrate grossly unremarkable. There is no evidence for nephrolithiasis and/or hydro nephrosis. No focal masses were demonstrated. Grossly the unopacified stomach, small bowel and large bowel demonstrate to be within normal limits. There is no evidence for bowel dilatation/or free air. The appendix is unremarkable. Left site colon demonstrate to be within normal limits. The urinary bladder was partially distended with no gross abnormalities. The uterus demonstrate to be within normal limits. There are no adnexal masses. The aorta demonstrate to be within normal limits. There is no retroperitoneal lymphadenopathy. There is no evidence for ascites. 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 IMPRESSION: No evidence for nephrolithiasis and/or hydronephrosis. Fatty infiltration of the liver. Electronically signed by: Odell Rangel MD 07/08/2023 1:51 AM CDT Due to temporary technical issues with the PACS/Fluency reporting system, reports are being signed by the in house radiologist without review as a courtesy to ensure prompt reporting. The interpreting r adiologist is fully responsible for the content of the report.
== END 2023-07-08 02:48 | disposition home or self-care (01) ==
LOC: ER 20:47
DX: M54.9 Dorsalgia, unspecified (principal)
CPT/HCPCS: 36415; 74176; 76377; 80053; 81003; 81025; 83690; 85025; 96374; 99284; J2001